=== PATIENT | female | born 1985 | race Caucasian/White ===

== ENCOUNTER 2024-01-20 22:40 | Emergency (ER) | payer BC, SELFPAY ==
[2024-01-20 22:42] VITALS: BP 164/90
[2024-01-20 23:22] VITALS: BP 114/77
--- NOTE | 2024-01-20 23:43 | ED.GENMED ---
History of Present Illness
<EDWIN Stein - Last Filed: 01/21/24 01:55>
General
Chief Complaint: Cardiac Symptoms
Source: patient
Exam Limitations: none
Time Seen by Provider: 01/20/24 23:32
Nursing documentation reviewed up to this point in time: agreed with
Travel History
Have you had any contact with someone who has COVID-19?: No
Do you have any symptoms of coronavirus? Fever > 100 degrees, chills, cough, shortness of breath, sore throat, loss of taste or smell, muscle aches, or headache?: No
History of Present Illness
History of Present Illness:
patient is a 38 y/o female with PMH of hypothyroidism presenting with chest tightness x 12 hours. Patient states that she felt left chest tightness and she thought it was GERD so she took Pepcid and Tums with no relief. Patient states that the
tightness does not radiate. patient admits tightness got worse with food. Patient denies previous episodes. Patient denies wheezing, SOB, diaphoresis, calf pain, fever, chills, N/V/D/C, edema, or palpitations. Patient admits to [facility] in October
where she has gotten episodes of tachycardia with SOB before but states that is not what this episode felt like. Patient admits to life stressors recently. Patient denies recent travel or illness. Patient denies any recent changes in medication.
Patient admits to FH of [place]'s from father, uncle, and paternal grandfather. BP on admission was 164/90.
Review of Systems
<EDWIN Stein - Last Filed: 01/21/24 01:55>
Review of Systems
All Other Systems: Not applicable
Constitutional: Reports no symptoms
EENT: Reports no symptoms
Respiratory: Reports trouble breathing
Cardiac: Reports palpitations and other (chest tightness )
ABD/GI: Reports no symptoms
: Reports no symptoms
Musculoskeletal: Reports no symptoms
Skin: Reports no symptoms
Neurological: Reports no symptoms
Endocrine: Reports no symptoms
Hematologic/Lymphatic: Reports no symptoms
Psychiatric: Reports no symptoms
Phy Exam
<EDWIN Stein - Last Filed: 01/21/24 01:55>
General Physical Exam
General Presentation: well appearing and no apparent distress
General Skin: warm and dry
General Habitus: normal
General Mental: alert
General Hydration: appears well hydrated
ENT Exam
ENT Exam: EOMI, pharynx normal, neck supple and normocephalic
Eye Exam
Eye Exam: PERRL, cornea clear and conjunctiva normal
Cardiovascular Exam
Cardiovascular Exam: regular rate/rhythm, no edema, no murmur and normal peripheral pulses
Pulmonary Exam
Pulmonary Exam: lungs clear, no respiratory distress, no rales, no crackles, no rhonchi, no stridor, no wheezing and no cough
Gastrointestinal Exam
Gastrointestinal Exam: normal bowel sounds, non tender, soft, no organomegaly, no pulsatile mass and non distended
Neurological Exam
Neurological Exam: alert, oriented x3, no motor deficits and speech normal
Musculoskeletal Exam
Musculoskeletal Exam: full ROM and no edema
Skin Exam
Skin Exam: normal color, warm/dry, no rash and no petechia
Psychiatric Exam
Psychiatric Exam: normal mood/affect
Course
<EDWIN Stein - Last Filed: 01/21/24 01:55>
Orders/Labs/Results
Orders:
Orders
01/20/24 22:44
Electrocardiogram (*1) Urgent
Reason for Study: Chest Pain
01/20/24 22:45
EKG- Treatment ONCE
01/20/24 23:43
Cardiac Monitoring- Treatment ONCE
01/20/24 23:46
CMP [Comprehensive Metabolic Panel] Urgent
Complete Blood Count/With Diff Urgent
HCG, Serum Qualitative Screen Urgent
TSH Reflex To Free T4 Urgent
Comment: ADD ON
Troponin I Urgent
01/20/24 23:49
Add On- LAB Urgent
Tests Added?: HCG qualitative
Add On- LAB Urgent
Tests Added?: tsh reflex t4
01/21/24 00:03
CR Chest - 2 Views Urgent
Comment:
Reason For Exam: left chest pain
01/21/24 00:36
Mag Hydrox/Al Hydrox/Simeth [Maalox] 30 ml Phenobarb/Hyoscy/Atropine/Scop [] 10 ml Viscous Lidocaine 2% [Xylocaine Viscous Cup] 10 ml PO NOW
Pantoprazole [Protonix IV] 40 mg IV NOW STA
01/21/24 00:39
Phenobarb/Hyoscy/Atropine/Scop [] 10 ml .ROUTE .STK-MED ONE
01/21/24 00:40
Mag Hydrox/Al Hydrox/Simeth [Maalox] 30 ml .ROUTE .STK-MED ONE
Viscous Lidocaine 2% [Xylocaine Viscous Cup] 15 ml .ROUTE .STK-MED ONE
01/21/24 02:06
Pantoprazole [Protonix IV] 40 mg IV NOW STA
Abnormal Lab Results
01/20/24
23:46
RBC 3.93 L 10^6/uL
(4.20-5.40)
Hgb 11.8 L g/dL
(12.0-16.0)
Hct 33.5 L %
(37.0-47.0)
Total Protein 6.2 L g/dl
(6.3-8.2)
01/20/24 23:46
01/20/24 23:46
Vital Signs
Initial and Last Documented VS:
Initial Vital Signs
Temp Pulse Resp BP Pulse Ox
98.4 F 106 18 164/90 100
01/20/24 22:42 01/20/24 22:42 01/20/24 22:42 01/20/24 22:42 01/20/24 22:42
Last Documented Vital Signs
Temp Pulse Resp BP Pulse Ox
98.4 F 63 18 114/77 98
01/20/24 22:42 01/20/24 23:30 01/20/24 22:42 01/20/24 23:22 01/20/24 23:30
<Mari Aquino, DO - Last Filed: 01/21/24 02:10>
Orders/Labs/Results
Orders:
Orders
01/20/24 22:44
Electrocardiogram (*1) Urgent
Reason for Study: Chest Pain
01/20/24 22:45
EKG- Treatment ONCE
01/20/24 23:43
Cardiac Monitoring- Treatment ONCE
01/20/24 23:46
CMP [Comprehensive Metabolic Panel] Urgent
Complete Blood Count/With Diff Urgent
HCG, Serum Qualitative Screen Urgent
TSH Reflex To Free T4 Urgent
Comment: ADD ON
Troponin I Urgent
01/20/24 23:49
Add On- LAB Urgent
Tests Added?: HCG qualitative
Add On- LAB Urgent
Tests Added?: tsh reflex t4
01/21/24 00:03
CR Chest - 2 Views Urgent
Comment:
Reason For Exam: left chest pain
01/21/24 00:36
Mag Hydrox/Al Hydrox/Simeth [Maalox] 30 ml Phenobarb/Hyoscy/Atropine/Scop [] 10 ml Viscous Lidocaine 2% [Xylocaine Viscous Cup] 10 ml PO NOW
Pantoprazole [Protonix IV] 40 mg IV NOW STA
01/21/24 00:39
Phenobarb/Hyoscy/Atropine/Scop [] 10 ml .ROUTE .STK-MED ONE
01/21/24 00:40
Mag Hydrox/Al Hydrox/Simeth [Maalox] 30 ml .ROUTE .STK-MED ONE
Viscous Lidocaine 2% [Xylocaine Viscous Cup] 15 ml .ROUTE .STK-MED ONE
01/21/24 02:06
Pantoprazole [Protonix IV] 40 mg IV NOW STA
Abnormal Lab Results
01/20/24
23:46
RBC 3.93 L 10^6/uL
(4.20-5.40)
Hgb 11.8 L g/dL
(12.0-16.0)
Hct 33.5 L %
(37.0-47.0)
Total Protein 6.2 L g/dl
(6.3-8.2)
01/20/24 23:46
01/20/24 23:46
Vital Signs
Initial and Last Documented VS:
Initial Vital Signs
Temp Pulse Resp BP Pulse Ox
98.4 F 106 18 164/90 100
01/20/24 22:42 01/20/24 22:42 01/20/24 22:42 01/20/24 22:42 01/20/24 22:42
Last Documented Vital Signs
Temp Pulse Resp BP Pulse Ox
98.4 F 63 18 114/77 98
01/20/24 22:42 01/20/24 23:30 01/20/24 22:42 01/20/24 23:22 01/20/24 23:30
<EDWIN Stein - Last Filed: 01/21/24 01:55>
MDM/Problems Addressed
Differential Diagnosis Includes:
WA
Anxiety
MDM/Problems Addressed:
chest tightness
<EDWIN Stein - Last Filed: 01/21/24 01:55>
*Critical Care Note
Total Time (30-74mins, 75-104mins- exclusive of procedures): Not Applicable
<Mari Aquino DO - Last Filed: 01/21/24 02:10>
*Pulse Oximetry
Patient hypoxic: no
*EKG
Interpreted by ED Provider?: Yes
Interpretation: normal
Comparison EKG: no comparison EKG present
Rate: normal
Rhythm: sinus
[place]: normal axis
Interval: normal interval
QRS Pattern: normal QRS
Ischemia: no ischemia
*Tin Pourer Interpretation
Rate: normal
Interpretation: normal
Rhythm: sinus
<EDWIN Stein - Last Filed: 01/21/24 01:55>
Update Note
Update Note:
patient admits to feeling better after GI medications, no change on physical exam
ED Attending Note
<EDWIN Stein - Last Filed: 01/21/24 01:55>
-
Portions of this chart may have been created with voice recognition software.� Occasional wrong word or��sound alike� substitutions may have occurred due to the inherent limitations of voice recognition software.
<Mari Aquino DO - Last Filed: 01/21/24 02:10>
ED Attending Note
Patient seen and examined by attending physician: Yes
I performed the substantive portion of visit, reviewed & personally made and approve the management plan that is documented in note by myself or EMELY.: Yes
I performed a history and physical exam of patient and discussed management with resident, I reviewed resident's note and agree with documented findings and plan of care.: Yes
ED Attending Note:
This is a 38-year-old female with no significant past medical history save for hypothyroidism, maintained on Synthroid. She complains of left-sided chest pain that began this afternoon around 12:00, persistent aching, pressure type pain that seems
worse after meals and questionably minimally temporized after taking 2 Tums early afternoon and then again around 4 PM along with a Pepcid.
Chest pain seemed to worsen after dinner tonight which prompted ED visit.
She denies coughing or shortness of breath, no fevers or chills, no back pain or neck pain.
Her only daily medication is levothyroxine.
She denies risk of .
No risk factors for thromboembolism. Does not take control, non-smoker, no recent travel. No personal nor family history of thromboembolism.
She does have family history of coronary artery disease in her father, paternal uncle and paternal grandfather. No family history of early CAD.
She did suffer COVID-19 URI early October and sometime after that noted intermittent brief palpitations but more recently, over the past 2 to 3 weeks, palpitations have resolved.
GENERAL: 38-year-old female appears her stated age, bright and alert, pleasant, appears in no acute distress.
EYE: anicteric
NECK: Supple, nontender, no meningismus, no significant adenopathy.
ENT: oral mucosa is moist. No rhinorrhea.
CARDIAC: Regular rate and rhythm. no murmur.
LUNGS: Clear breath sounds bilaterally, no acute respiratory distress, no wheezes/rales/rhonchi. No palpable chest wall tenderness.
ABDOMEN: Soft, nondistended, without focal tenderness, no r/g, normoactive BS.
NEUROLOGICAL: Alert and oriented x3, no focal neuro deficits. Gait is lay and steady.
SKIN: Warm and dry, normal color, skin intact. No rash.
MUSCULOSKELETAL: No C/C/E. peripheral pulses are full and equal b/l. No palpable tenderness.
PSYCH: Normal and appropriate interaction.
History and exam most consistent with GERD, other consideration is ACS. Patient has no risk factors for thromboembolism.
EKG shows normal sinus rhythm, normal axis, normal intervals, no acute ST-T wave abnormalities.
Labs are pending including troponin and TSH.
Will check chest x-ray.
If labs, x-ray unremarkable will trial GI cocktail and Protonix.
01/21/2024 0206 AM
Patient feeling improved, chest pain-free after GI cocktail. Will give an IV dose of Protonix.
Labs and chest x-ray are unremarkable.
Monitor shows normal sinus rhythm.
I suspect acute GERD as cause for chest discomfort and recommend bland diet and will add a short course of daily Protonix.
Prompt follow-up with PCP for recheck.
Discharge Plan
Departure
Patient Disposition: Home (Routine Discharge)
Date of Disposition: 01/21/24
Time of Disposition: 02:08
Patient with high blood pressure during this ER visit?: No
Condition: Good
Discharge Problem:
Acute GERD
Instructions: Acid Reflux and GERD in Adults (DC)
Prescriptions:
New
pantoprazole [Protonix] 40 mg tablet,delayed release (DR/EC)
40 mg PO DAILY Qty: 30 0RF
Referrals:
Sukhjinder Overton DO [Family Provider] - Call in 1-3 days for appt
Interventions
Interventions:
*Risk Screen - Suicide Last Done: 01/20/24 22:42
*General Assessment Last Done: 01/20/24 23:51
*Neglect/Abuse Screening Last Done: 01/20/24 22:42
ED- Fall Risk Assessment Last Done: 01/21/24 00:18
*ED COVID-19 Vaccine History Last Done: 01/20/24 23:51
ED- Cardiac Assessment Last Done: 01/21/24 00:18
ED- Pulmonary Assessment Last Done: 01/21/24 00:18
[2024-01-20 23:51] VITALS: BMI 31.0
[2024-01-20 23:59] LABS: % Basophils 1.1 % (0-2); % Eosinophils 3.1 % (0-6); % Immature Granulocytes 0.3 % (0-0.5); % Lymphocytes 36.9 % (20.5-51.1); % Neutrophils 51.6 % (42.2-75.2); Absolute Basophils 0.1 10^3/uL (0-0.2); Absolute Eosinophils 0.3 10^3/uL (0-0.7); Absolute Lymphocytes 2.9 10^3/uL (1.2-3.4); Absolute Monocytes 0.6 10^3/uL (0.1-0.6); Absolute Neutrophils 4.1 10^3/uL (1.4-6.5); Hematocrit 33.5 % (37.0-47.0); Hemoglobin 11.8 g/dL (12.0-16.0); Mean Corp Hgb Conc. 35.2 g/dL (33.0-37.0); Mean Corpuscular Volume 85.2 fL (81.0-99.0); Mean Platelet Volume 10.2 fL (7.4-10.4); Nucleated Red Blood Cells % 0 %; Platelet Count 237 10^3/uL (130-400); Red Blood Cell Count 3.93 10^6/uL (4.20-5.40); Red Cell Dist. Width 12.1 % (11.5-14.5)
[2024-01-21] VITALS: BP 109/72
[2024-01-21 00:25] LABS: HCG, Serum Qualitative Screen Negative; Troponin I < 0.012 ng/ml
[2024-01-21 00:31] LABS: ALT (SGPT) 11 U/L (0-35); AST (SGOT) 16 U/L (14-36); Albumin 3.9 g/dl (3.5-5.0); Alkaline Phosphatase 40 U/L (38-126); Blood Urea Nitrogen 14 mg/dl (7-17); Calcium 9.3 mg/dl (8.4-10.2); Carbon Dioxide 25 mmol/L (22-30); Chloride 103 mmol/L (98-107); Estimated Creatinine Clearance 97 ml/min; Glucose 90 mg/dl (70-99); Potassium 4.1 mmol/L (3.5-5.1); Sodium 137 mmol/L (135-145); Total Bilirubin 0.3 mg/dl (0.2-1.3); Total Protein 6.2 g/dl (6.3-8.2); eGFR > 60.00
[2024-01-21] MEDS: PROTONIX IV 40 MG IV ×2 (00:42→02:15)
[2024-01-21] MEDS: MAALOX 50 PO (00:42)
[2024-01-21 01:00] VITALS: BP 109/81
[2024-01-21 02:00] VITALS: BP 117/87
== END 2024-01-21 02:37 | disposition home or self-care (01) ==
LOC: EMR 22:40
PROVIDERS: EMERGENCY PHYSICIAN Emergency Medicine; FAMILY PHYSICIAN Family Medicine
DX: K21.9 Gastro-esophageal reflux disease without esophagitis (principal); E03.9 Hypothyroidism, unspecified; Z82.49 Family history of ischemic heart disease and other diseases of the circulatory system
CPT/HCPCS: 99285; 96374; 96376; 71046; 80053; 84443; 84484; 84703; 85025; 93005